=== PATIENT | female | born 1970 | race Caucasian/White ===

== ENCOUNTER 2019-03-15 14:30 | Emergency (ER) | payer BC, OTHER ==
--- NOTE | 2019-03-15 14:42 | PDOC ---
History of Present Illness - General Chief Complaint: Headache Stated Complaint: FEVER,HEADACHE Time Seen by Provider: 03/15/19 14:36 *DC/Admit/Observation/Transfer - Discharge Dispostion Condition at time of disposition: Stable - Referrals - Patient Instructions - Post Discharge Activity
[2019-03-15 14:49] VITALS: BMI 24.7
[2019-03-15 15:24] LABS: EPITHELIAL CELLS FEW /hpf
[2019-03-15] MEDS ORDERED: ACETAMINOPHEN 325 MG TABLET (FP) PO ONE (15:40)
[2019-03-15] MEDS ORDERED: ACETAMINOPHEN 325 MG TABLET (FP) ONE (15:43)
--- NOTE | 2019-03-15 15:53 | PDOC ---
History of Present Illness - General Chief Complaint: Headache Stated Complaint: FEVER,HEADACHE Time Seen by Provider: 03/15/19 14:36 History Source: Patient, Family (Sister at bedside. ) Exam Limitations: No Limitations - History of Present Illness Initial Comments: HPI: 48 y/o female presenting to ER from [facility] complaining of fever and intermittent frontal headache x2 days. TMax 103. Fever and headache have improved with PO Acetaminophen headache. Denies change in vision, neck stiffness, nausea, or vomiting. Endorses urinary frequency without dysuria, hematuria, or vaginal discharge. H/o of similar symptoms last year when she was diagnosed with a UTI. Normal PO intake. Of note, the pt is s/p prolonged hospitalization for septic infection following leak from gastric sleeve placement at [facility] last year. During the course of stay, the pt developed a PE and suffered a NE. Reports no significant fdc complications. Was evaluated by her stereoplotter operator earlier this week and reported everything was normal. Medical Hx: - S/p gastric sleeve placement w/ post op complications including septic infection and secondary PE and NE - Internal hernia at site of gastric sleeve, following with surgeon Dr. Hardy at [facility] - S/p multiple benign breast lumpectomies Review of Systems: In addition to that documented in the HPI above, the additional ROS was obtained : Constitutional: Endorses fevers and intermittent chills Head: Denies vision changes ENMT: Denies sore throat, rhinorrhea, or sinus congestion CV: Denies chest pain Resp: Denies SOB GI: Denies abd pain, vomiting, or diarrhea : Per HPI MSK: Denies recent trauma Skin: Denies new rashes Neuro: Denies new numbness or tingling or weakness Endocrine: Denies polyuria Heme: Denies bleeding or bruising Physical Examination: Constitutional: Well-developed, well-nourished, nontoxic adult female in no acute distress or obvious discomfort. Found semi-fowlers on hospital bed. Alert and oriented x4. Answered all questions appropriately and completely. Speech was non-labored, non-pressured. Head: Normocephalic. No obvious external signs of trauma. Eyes: Sclerae white. Ears: Hearing grossly intact. Nose: No nasal discharge. Neck: Supple, trachea is midline. No nuchal rigidity. Spontaneously flexing and extending neck without obvious discomfort. Cardiovascular / Chest: Regular rate and regular rhythm. No murmur, rubs, clicks , or gallops. Peripheral pulses: radial pulses full. Respiratory: Breathing unlabored. Equal chest rise and fall. Clear to auscultation bilaterally. No stridor, no wheezing, no rhonchi. Gastrointestinal: abdomen is soft, non-tender, non-distended. Pt bent at waist without discomfort. Large post-op scar in upper abdomen; site well appearing, clean, dry, and intact. Neuro: Alert and oriented. Moving all four extremities spontaneously. Skin: Davidson, warm, dry, and intact. No diaphoresis. : No R or L CVA tenderness. Psych: Affect: friendly. Mood: normal. Smiling and laughing. MDM: *Reviewed vital signs, nursing notes, and prior visit documentation (if available). 48 y/o female presenting with fever and increased urinary frequency x2 days. Febrile on arrival. Vitals remarkable for borderline hypotension without tachycardia. Pt reports this is a normal blood pressure finding for her. Physical exam as described above. UA remarkable for pyuria and leukocyte esterase. Suspect possible acute cystitis. 16:[address] Rhonda Wallace, covering surgeon for Dr. Hardy. Verbally appraised of the pts HPI, ED course, and current plan of management. Agrees abdominal CT scan is likely not indicated but will discuss case with Dr. Hardy and call back. CBC remarkable for mild leukocytosis with left shift. CMP revealed elevated LFTs and T. Bili. Lactic acid not elevated. Will further evaluate with RUQ U/S. 17:35 Second telephone conversation with Dr. Wallace after she contacted Dr. Hardy. Discussed CMP results. Agreed with plan for RUQ U/S. If normal, then pt should f/u in surgery clinic or with PCP to have labs repeated in one week. If abd exam remains unchanged, then CT scan would not be indicated at this time. 18:[address] Wallace regarding U/S images concerning for possible acute cholecystitis. Will accept the pt as a transfer to the surgical service. Requested Zosyn for antibiotic coverage. Images transferred electronically to [facility] PACS system. 18:50 Transfer to [facility] initiated via transfer center. 19:05 Pt accepted as ED to ED transfer by Dr. Hardy for further evaluation for possible acute cholecystitis. Orlando Reis M.D., PGY2 Emergency Medicine Resident Past History - Past Medical History Allergies/Adverse Reactions: Allergies Allergy/AdvReac Type Severity Reaction Status Date / Time shellfish derived Allergy Verified 03/15/19 16:26 IV CONTRAST Allergy Uncoded 03/15/19 16:26 Home Medications: Ambulatory Orders Apixaban [Eliquis] 5 mg PO BID 03/15/19 Lisinopril [Zestril] 2.5 mg PO DAILY 03/15/19 Metoprolol Succinate 25 mg PO DAILY 03/15/19 Pantoprazole Sodium [Protonix -] 40 mg PO DAILY 03/15/19 Rosuvastatin Calcium [Crestor] 20 mg PO DAILY 03/15/19 Spironolactone [Aldactone] 25 mg PO DAILY 03/15/19 COPD: No CHF: No Other medical history: P.E. - Surgical History Abdominal Surgery: Yes (GASTRIC SLEEVE, THEN SEPTIC) - Suicide/Smoking/Psychosocial Hx Smoking History: Never smoked Hx Alcohol Use: No Drug/Substance Use Hx: No *Physical Exam - Vital Signs Last Vital Signs Temp Pulse Resp BP Pulse Ox 103.2 F H 86 18 96/50 L 100 03/15/19 14:31 03/15/19 14:31 03/15/19 14:31 03/15/19 14:31 03/15/19 14:31 Vital Signs - Vital Signs #1 Blood Pressure: 97/67 MAP: 77 Pulse Rate: 83 Respiratory Rate: 18 O2 Sat by Pulse Oximetry (%): 100 Oxygen Delivery Method: Room Air ED Treatment Course - LABORATORY CBC & Chemistry Diagram: 03/15/19 16:15 03/15/19 16:15 - ADDITIONAL ORDERS Additional order review: Laboratory Results 03/15/19 14:58 Urine Color Yellow Urine Appearance Clear Urine pH 7.0 Urine Protein 2+ H Urine Glucose (UA) Negative Urine Ketones Negative Urine Blood 2+ H Urine Nitrite Negative Urine Bilirubin Negative Urine Urobilinogen 2.0 H Ur Leukocyte Esterase Trace H Urine RBC 80-100 Urine WBC 20-40 Ur Transition Epith Cell Few Urine Bacteria Many *DC/Admit/Observation/Transfer Diagnosis at time of Disposition: Acute cholecystitis, Urinary frequency Fever Qualifiers: Fever type: unspecified Qualified Code(s): R50.9 - Fever, unspecified - Discharge Dispostion Disposition: TRANSFER ACUTE CARE/OTHER HOSP Condition at time of disposition: Stable Decision to Admit order: No - Referrals Referrals: Diamond Maradiaga MD [Primary Care Provider] - - Patient Instructions - Post Discharge Activity - Transfer to Acute Care Facility Receiving Facility: [facility]. Accepting Physician:: Dr. Hardy
--- NOTE | 2019-03-15 15:53 | PDOC ---
Attending Attestation - Resident Resident Name: Orlando Reis - ED Attending Attestation I have performed the following: I have examined & evaluated the patient, The case was reviewed & discussed with the resident, I agree w/resident's findings & plan, Exceptions are as noted
[2019-03-15] MEDS ORDERED: LACTATED RINGERS SOLUTION 1000 ML INFUS.BAG IV ONE (16:04)
[2019-03-15 16:34] LABS: BASO % 0.2 % (0-2.0); HEMATOCRIT 35.6 % (32.4-45.2); HEMOGLOBIN 12.2 GM/dl (10.7-15.3); LYMPH % 6.7 % (8-40); MCH 31.1 pg (25.7-33.7); MCHC 34.2 g/dl (32.0-36.0); MEAN CELL VOLUME 90.8 fl (80-96); MEAN PLT VOLUME 10.4 fl (7.5-11.1); MONO % 7.6 % (3.8-10.2); NEUT % 85.5 % (42.8-82.8); PLATELET COUNT 135 K/MM3 (134-434); RBC 3.92 M/mm3 (3.60-5.2); RDW 12.2 % (11.6-15.6); WHITE BLOOD COUNT 11.4 K/mm3 (4.0-10.8)
[2019-03-15 16:42] LABS: ALBUMIN 3.5 g/dl (3.4-5.0); BILIRUBIN,TOTAL 1.8 mg/dl (0.2-1); CALCIUM 8.4 mg/dl (8.5-10); CREATININE 0.8 mg/dl (0.55-1.3); POTASSIUM 3.6 mmol/L (3.5-5.1); TOT PROT 6.4 g/dl (6.4-8.2)
[2019-03-15] MEDS ORDERED: PIPERACILLIN/TAZOB 3.375 GM 3.375 GM in DEXTROSE 5%-WATER - 50 ML IVPB ONE (18:44)
[2019-03-15] MEDS ORDERED: PIPERACILLIN/TAZOBACTAM 3.375 GM VIAL IVPB ONE (18:59)
[2019-03-15 20:10] VITALS: BP 95/55; PULSE 77; TEMP 98.9
--- NOTE | 2019-03-18 14:15 | PDOC ---
Patient Follow-up (Call Back) - Post ED Follow - Up Condition at time of discharge: Stable Disposition at time of original discharge: TRANSFER ACUTE CARE/OTHER HOSP - Disposition Additional Instructions/Notes: Informed by the lab of urine culture results showing Escherichia coli ESBL. Resistant to Bactrim and Levaquin, sensitive to other antibiotics. Patient was transferred from here to [facility] for presumed infection, She was given Zosyn before transfer, which should be effective according to the sensitivity profile. This was recommended by the doctors at [facility] before transfer, presumably continued
== END 2019-03-15 19:50 | disposition short-term general hospital (02) ==
LOC: SUPCPDRO 14:30 → FER 14:30
PROC: 3E03329 Introduction of Other Anti-infective into Peripheral Vein, Percutaneous Approach (ICD-10-PCS; principal; 2019-03-15)
PROC: 3E0337Z Introduction of Electrolytic and Water Balance Substance into Peripheral Vein, Percutaneous Approach (ICD-10-PCS; 2019-03-15)
DX: K81.9 Cholecystitis, unspecified (principal); R35.0 Frequency of micturition; R50.9 Fever, unspecified; Z98.84 Bariatric surgery status
CPT/HCPCS: 36415; 76705-TC; 80053; 81003; 81015; 83605; 85025; 87086; 87186; 99284-25